=== PATIENT | female | born 1970 | race Caucasian/White ===

== ENCOUNTER → 2017-08-02 | Outpatient (CLI) | payer OTHER ==
[~2017-08-02] MED LIST: ACETAMINOPHEN-H1 TA2 PO; ALPRAZOLAM0.5 M3 PO; ASPIRIN ADULT L81 M2 PO; BACTRIM DS 8001 TA1 PO; BACTRIM DS 8001 TAB PO; Bactrim 200 MG/30 ML PO; CLINDAMYCIN HC300 MG PO; CYCLOBENZAPRINE10 MG PO; CYCLOBENZAPRINE5 M3 PO; Fioricet 325 MG1 TAB PO; LISINOPRIL-HYDR1 TA1 PO; LISINOPRIL5 MG PO; PLAQUENIL200 MG PO; VALIUM5 MG PO; VITAMIN C500 M4 PO; VITAMIN D400 IU PO; ZOLOFT25 MG PO
== END | disposition home or self-care (01) ==
LOC: MAMMO 06-28 16:00
DX: Z12.31 Encounter for screening mammogram for malignant neoplasm of breast (principal)

== ENCOUNTER 2017-12-29 16:33 | Emergency (ER) | payer OTHER ==
[~2017-12-29] VITALS: Ht 149.8 cm; Wt 100.7 kg
[2017-12-29] MEDS ORDERED: Motrin,Rufen800 MG PO (16:40)
[2017-12-29] MEDS ORDERED: CIPROFLOXACIN500 M4 PO (16:40)
[2017-12-29] MEDS ORDERED: HYDROCODONE-AC1 EAC1 PO (16:41)
[2017-12-29] MEDS ORDERED: DOXYCYCLINE100 M3 PO (17:17)
== END 2017-12-29 17:22 | disposition home or self-care (01) ==
LOC: ED 16:33
DX: N61.1 Abscess of the breast and nipple (principal); I10 Essential (primary) hypertension; M32.9 Systemic lupus erythematosus, unspecified; Z98.51 Tubal ligation status; Z98.890 Other specified postprocedural states; Z79.899 Other long term (current) drug therapy; Z79.82 Long term (current) use of aspirin; Z88.0 Allergy status to penicillin; Z91.013 Allergy to seafood

== ENCOUNTER → 2018-08-08 | Outpatient (CLI) | payer OTHER ==
[~2018-08-08] MED LIST changes: +CIPROFLOXACIN500 M4 PO; +DOXYCYCLINE100 M3 PO; +HYDROCODONE-AC1 EAC1 PO; +Motrin,Rufen800 MG PO
== END ==
LOC: MAMMO 03:34
DX: Z12.31 Encounter for screening mammogram for malignant neoplasm of breast (principal)